=== PATIENT | male | born 1945 | race Caucasian/White ===

== ENCOUNTER 2021-05-30 13:00 | Inpatient (IN) | payer MEDICARE, MEDICAID ==
[~2021-05-30] VITALS: Ht 167.6 cm; Wt 77.3 kg
[~2021-05-30 13:00] MED LIST: AMLO5TAB16 PO; ASPI-1071 PO; CHOL20002 PO; CYAN25004 SL; OMEG10006 PO; PENT400T17 PO; VITAL REDS PO
[2021-06-05] MEDS ORDERED: PYRI100T10 PO (11:13)
[2021-06-06] VITALS (17 sets, daily range): BP systolic 139–186; BP diastolic 56–79
[2021-06-06] MEDS ORDERED: ringers solution, lacted 1,000 ML IV SCH ×2 (05:00→12:40)
[2021-06-06] MEDS ORDERED: cefazolin/dext.iso 2gm/100ml IV ONE (05:30)
[2021-06-06] MEDS ORDERED: famotidine 20mg tablet PO ONE (05:30)
[2021-06-06] MEDS: phenylephrine inj 50 MG in normal saline 250ml IV soln 245 ML IV SCH (05:30)
[2021-06-06] MEDS: nitroPRUSSIDE (NIPRIDE) (200MCG/ML) 100ML Drip IV SCH ×2 (05:30→23:19)
[2021-06-06] MEDS ORDERED: LIDOcaine 1% 30ml preserv. free vial ONE (08:53)
[2021-06-06] MEDS ORDERED: heparin 10,000 units/1 ML INJ ONE (08:53)
[2021-06-06 09:27] LABS: BASOPHILS # (AUTO) 0.1 X10'3 (0-0.2); BASOPHILS % (AUTO) 0.8 % (0-1); EOSINOPHILS # (AUTO) 0.2 X10'3 (0-0.9); EOSINOPHILS % (AUTO) 2.7 % (0-6); LYMPHOCYTES % (AUTO) 26.7 % (21-51); MEAN CORPUSCULAR HEMOGLOBIN 30.2 PG (27.0-31.0); MEAN CORPUSCULAR HGB CONC 32.8 g/dL (33.0-36.5); MONOCYTES # (AUTO) 0.5 X10'3 (0-0.9); MONOCYTES % (AUTO) 6.9 % (2-12); NEUTROPHILS # (AUTO) 4.8 X10'3 (1.8-7.7); NEUTROPHILS % (AUTO) 62.9 % (42-75); PRE OP HEMATOCRIT 37.5 % (42.0-52.0); PRE OP HEMOGLOBIN 12.3 g/dL (14.0-17.9); PRE OP PLATELET COUNT 246 X10'3 (140-440); RED BLOOD COUNT 4.08 X10'6 (4.70-6.10); RED CELL DISTRIBUTION WIDTH 14.9 % (11.5-14.5)
[2021-06-06] MEDS ORDERED: LIDOcaine 1% (10mg/ml) 2ml vial ONE (09:30)
[2021-06-06] MEDS ORDERED: iohexol 350MG/ML 100ml bottle IV ONE (09:31)
[2021-06-06 09:34] LABS: CLARITY,URINE CLEAR (Clear); COLOR,URINE YELLOW (Yellow); GLUCOSE, URINE NEGATIVE (Neg); KETONES,URINE NEGATIVE (Neg); LEUKOCYTE ESTERASE ,URINE NEGATIVE (Neg); NITRITES, URINE NEGATIVE (Neg); OCCULT BLOOD,URINE NEGATIVE (Neg); PH,URINE 5.5 (4.8-8.0); PROTEIN,URINE NEGATIVE (Neg); UROBILINOGEN,URINE 0.2 E.U/dL (0.2-1.0)
[2021-06-06 09:37] LABS: PRE OP PARTIAL THROMB. TIME 34 SECONDS (22-32)
[2021-06-06 09:44] LABS: ALBUMIN 3.5 G/DL (3.4-5.0); ALBUMIN/GLOBULIN RATIO 0.7 (1.1-1.5); ALKALINE PHOSPHATASE 76 IU/L (46-116); BLOOD UREA NITROGEN 23 MG/DL (7-18); BUN/CREATININE RATIO 15.3 (5.4-32.0); CALCIUM 8.3 MG/DL (8.5-10.1); CHLORIDE 107 MMOL/L (99-107); PRE OP ALT 33 U/L (30-65); PRE OP ANION GAP 10 (8-16); PRE OP AST 24 U/L (10-37); PRE OP BILIRUB, TOTAL 0.3 MG/DL (0.0-1.0); PRE OP GLUCOSE 93 MG/DL (70-104); PRE OP POTASSIUM 3.7 MMOL/L (3.4-5.1); PRE OP SODIUM 143 MMOL/L (135-145); TOTAL CARBON DIOXIDE 25.8 MMOL/L (24-32); TOTAL PROTEIN 8.2 G/DL (6.4-8.2); eGFR 46 ML/MIN
[2021-06-06 09:46] LABS: UA COLLECTION TYPE CLN CATCH MIDSTREAM
[2021-06-06] MEDS ORDERED: sevoflurane 250ml liquid IH ONE (11:31)
[2021-06-06] MEDS ORDERED: midazolam 1 mg/ML 2ml injection ONE (11:37)
[2021-06-06] MEDS ORDERED: fentaNYL/PF 50MCG/1 ML 2ML syringe ONE ×2 (11:37→14:01)
[2021-06-06] MEDS ORDERED: propofol inj 20 ML IV ONE (11:40)
[2021-06-06] MEDS ORDERED: rocuronium 10mg/ml inj IV ONE (12:10)
[2021-06-06] MEDS ORDERED: dexamethasone sod phosphate 4mg/ml inj. ONE (12:15)
[2021-06-06] MEDS ORDERED: morphine 2 MG/ML inj. syringe IV PRN (12:40)
[2021-06-06] MEDS ORDERED: ondansetron/PF 4mg/2ml inj IV PRN ×2 (12:40→14:35)
[2021-06-06] MEDS ORDERED: meperidine/PF 25mg/ml syringe IV PRN ×3 (12:40)
[2021-06-06] MEDS ORDERED: proCHLORperazine 10 MG/2 ml inj IV PRN (12:40)
[2021-06-06] MEDS ORDERED: morphine 4 MG/ML inj SYRINge IV PRN (12:40)
[2021-06-06] MEDS ORDERED: glycopyrrolate 0.2mg/ml inj ONE (13:59)
[2021-06-06] MEDS ORDERED: heparin 1,000unit/ml 10ml vial 10 ML ONE (13:59)
[2021-06-06] MEDS ORDERED: neostigmine methylsulfate 1 MG/ML 10ml vial ONE (13:59)
[2021-06-06] MEDS ORDERED: ondansetron/PF 4mg/2ml inj ONE (13:59)
--- NOTE | 2021-06-06 14:21 | NUR ---
Received from OR via BED IN STABLE CONDITION , accompanied by Anesthesiologist and PROCUREMENT ASSISTANT report given by PROCUREMENT ASSISTANT AND Anesthesiolgist. Addendum: 06/06/21 at 1457 by Sylvia Soliman RN Amended: Links added.
[2021-06-06] MEDS ORDERED: HYDROcodone/acetaminophen 10/325mg tab PO PRN (14:35)
[2021-06-06] MEDS ORDERED: HYDROmorphone inj. 0.5 MG/0.5 ML DISP.SYRIN IV PRN (14:35)
--- NOTE | 2021-06-06 15:41 | NUR ---
PATIENT TRANSFERRED TO ICU ROOM 2038 IN STABLE CONDITION AFTER REPORT GIV
--- NOTE | 2021-06-06 16:00 | NUR ---
received from pacu. placed on monitor. denies pain resting comfortably
--- NOTE | 2021-06-06 16:50 | NUR ---
PATIENT TRANSFERRED FROM PACU IN STABLE CONDITION TO ROOM 2038 AFTER REPORT GIVEN. PATIENT TRANSPORTED VIA BED ON MONITOR WITH RNX2 AND GAMING DEPARTMENT HEAD
--- NOTE | 2021-06-06 18:10 | NUR ---
Patient in room ICU 2038. I have received report from Brionna RICHEY and had the opportunity to ask questions and assume patient care.
[2021-06-06] MEDS: potassium CL 20mEq in D5-1/2NS 1,000 ML IV SCH ×2 (18:33→22:35)
[2021-06-06] MEDS: ceFAZolin inj. 1,000 MG in dextrose 5%-water 50ml 50 ML IV SCH (18:33)
[2021-06-07] VITALS (11 sets, daily range): BP systolic 123–158; BP diastolic 46–66
[2021-06-07] MEDS: ceFAZolin inj. 1,000 MG in dextrose 5%-water 50ml 50 ML IV SCH (01:27)
[2021-06-07 02:51] LABS: BASOPHILS # (AUTO) 0.1 X10'3 (0-0.2); BASOPHILS % (AUTO) 1.1 % (0-1); EOSINOPHILS % (AUTO) 0.1 % (0-6); HEMATOCRIT 31.5 % (42.0-52.0); HEMOGLOBIN 10.5 g/dl (14.0-17.9); LYMPHOCYTES # (AUTO) 0.8 X10'3 (1.1-4.8); LYMPHOCYTES % (AUTO) 8.6 % (21-51); MEAN CORPUSCULAR HEMOGLOBIN 30.3 PG (27.0-31.0); MEAN CORPUSCULAR HGB CONC 33.3 g/dL (33.0-36.5); MEAN CORPUSCULAR VOLUME 90.7 FL (78-98); MEAN PLATELET VOLUME 8.2 FL (7.4-10.4); MONOCYTES # (AUTO) 0.1 X10'3 (0-0.9); MONOCYTES % (AUTO) 1.4 % (2-12); NEUTROPHILS # (AUTO) 8.3 X10'3 (1.8-7.7); NEUTROPHILS % (AUTO) 88.8 % (42-75); PLATELET COUNT 195 X10'3 (140-440); RED BLOOD COUNT 3.47 X10'6 (4.70-6.10); RED CELL DISTRIBUTION WIDTH 15.1 % (11.5-14.5); WHITE BLOOD COUNT 9.3 X10'3 (4.5-11.0)
[2021-06-07 03:01] LABS: ALBUMIN 2.5 G/DL (3.4-5.0); ANION GAP 10 (8-16); BLOOD UREA NITROGEN 18 MG/DL (7-18); CALCIUM 7.8 MG/DL (8.5-10.1); CHLORIDE 107 MMOL/L (99-107); CREATININE 1.38 MG/DL (0.60-1.10); GLUCOSE 201 MG/DL (70-104); POTASSIUM 4.6 MMOL/L (3.5-5.1); SODIUM 139 MMOL/L (135-145); TOTAL CARBON DIOXIDE 22.5 MMOL/L (24-32); eGFR 51 ML/MIN
[2021-06-07] MEDS: phenylephrine inj 50 MG in normal saline 250ml IV soln 245 ML IV SCH (03:47)
[2021-06-07] MEDS: potassium CL 20mEq in D5-1/2NS 1,000 ML IV SCH ×2 (04:00→05:26)
--- NOTE | 2021-06-07 06:21 | NUR ---
Problems reprioritized. Patient report given, questions answered & plan of care reviewed with Elisabeth RICHEY.
[2021-06-07] MEDS ORDERED: cholecalciferol (vitamin D3) 1,000 unit (25mcg) tablet PO SCH (09:29)
[2021-06-07] MEDS ORDERED: cyanocobalamin 500mcg tablet PO SCH (09:30)
[2021-06-07] MEDS ORDERED: aspirin 325mg tablet, delayed-release (Ecotrin) PO ONE (09:40)
[2021-06-07] MEDS ORDERED: aspirin 81mg, enteric-coated 1 TAB TABLET.DR PO ONE (10:05)
--- NOTE | 2021-06-07 11:54 | NUR ---
Patient discharged per Dr. Rios's order. ART line, surgical drain, and PIV all removed with bleeding contolled. Addendum: 06/07/21 at 1158 by Elisabeth Rmaos RN Controlled. Patient alert, oriented and in no apparent distress at time of discharge. Patient was able to ambulate on room air 300 ft without any ambulation devices and without any changes in vital signs. Patient discharge instructions were discussed and patient was given time for questions and answers. Patient stated an understanding of these and stated that he would call Dr. Rios's office to schedule a follow-up appointment. Patient stated that Dr. Rios and his office team already discussed the instructions with him so he felt he had a good understanding of what to do. Patient able to eat a little prior to leaving and felt "great to eat something". Patient took all belongings with him including discharge instructions.
[2021-06-08] MEDS ORDERED: aspirin 81mg, enteric-coated 1 TAB TABLET.DR PO SCH (08:00)
[2021-06-08] MEDS ORDERED: [UNRECOGNIZED DRUG - OTHER] PO SCH (08:00)
[2021-06-08] MEDS ORDERED: OMEGA-3/DHA/EPA/FISH OIL 1 EACH CAPSULE.DR PO SCH (08:00)
[2021-06-08] MEDS ORDERED: pyridoxine 50mg tablet PO SCH (08:00)
[2021-06-08] MEDS ORDERED: amLODIPine 5mg tablet PO SCH (08:00)
== END 2021-06-07 11:00 | disposition home or self-care (01) | DRG 39 ==
LOC: PRE-OP 13:00 → PAS IN 06-06 08:38 → EDSTATUS 06-06 13:00 → ICU 2S 06-06 15:35
PROVIDERS: ADMIT Surgery; ATTEND Surgery
PROC: 03CK0ZZ Extirpation of Matter from Right Internal Carotid Artery, Open Approach (ICD-10-PCS; 2021-06-06)
PROC: 03CM0ZZ Extirpation of Matter from Right External Carotid Artery, Open Approach (ICD-10-PCS; 2021-06-06)
PROC: 03UH0KZ Supplement Right Common Carotid Artery with Nonautologous Tissue Substitute, Open Approach (ICD-10-PCS; 2021-06-06)
PROC: 03UK0KZ Supplement Right Internal Carotid Artery with Nonautologous Tissue Substitute, Open Approach (ICD-10-PCS; 2021-06-06)
PROC: 03UM0KZ Supplement Right External Carotid Artery with Nonautologous Tissue Substitute, Open Approach (ICD-10-PCS; 2021-06-06)
PROC: 4A10X4Z Monitoring of Central Nervous Electrical Activity, External Approach (ICD-10-PCS; 2021-06-06)
PROC: B3251ZZ Computerized Tomography (CT Scan) of Bilateral Common Carotid Arteries using Low Osmolar Contrast (ICD-10-PCS; 2021-06-06)
PROC: B32G1ZZ Computerized Tomography (CT Scan) of Bilateral Vertebral Arteries using Low Osmolar Contrast (ICD-10-PCS; 2021-06-06)
PROC: 03CH0ZZ Extirpation of Matter from Right Common Carotid Artery, Open Approach (ICD-10-PCS; principal; 2021-06-06 11:31)
DX: I65.21 Occlusion and stenosis of right carotid artery (principal); Z20.822 Contact with and (suspected) exposure to COVID-19
CPT/HCPCS: 36415; 70498; 71046; 80048; 80053; 81003; 85025; 85610; 85730; 86885; 86900; 86901; 87081; 87635; 88300; 88305; 93005; 93882; 95813; 95816; A4618; A6258; A7000; C1758; C1768; C1887; G0378; J0690; J1100; J1644; J2001; J2175; J2250; J2370; J2405; J2704; J2710; J3010; J3480; J3490; J7040; J7050; J7060; J7120; Q9967

== ENCOUNTER 2022-04-27 08:42 | Observation (INO) | payer MEDICARE, MEDICAID ==
[2022-04-27] VITALS (16 sets, daily range): BP systolic 122–195; BP diastolic 47–87
[~2022-04-27] VITALS: Ht 167.6 cm; Wt 76.3 kg
[~2022-04-27 08:42] MED LIST changes: +PYRI100T10 PO; +iohexol 300mg/ml 100ml inj. ONE
[2022-04-27 09:46] LABS: BASOPHILS # (AUTO) 0.1 X10'3 (0-0.2); BASOPHILS % (AUTO) 0.7 % (0-1); EOSINOPHILS # (AUTO) 0.1 X10'3 (0-0.9); RED BLOOD COUNT 4.17 X10'6 (4.70-6.10)
[2022-04-27 09:48] LABS: EOSINOPHILS % (AUTO) 0.8 % (0-6); HEMATOCRIT 36.1 % (42.0-52.0); HEMOGLOBIN 12.1 g/dl (14.0-17.9); LYMPHOCYTES # (AUTO) 1.2 X10'3 (1.1-4.8); LYMPHOCYTES % (AUTO) 13.8 % (21-51); MEAN CORPUSCULAR HGB CONC 33.4 g/dL (33.0-36.5); MEAN CORPUSCULAR VOLUME 86.7 FL (78-98); MONOCYTES # (AUTO) 0.8 X10'3 (0-0.9); MONOCYTES % (AUTO) 9.7 % (2-12); NEUTROPHILS # (AUTO) 6.3 X10'3 (1.8-7.7); PLATELET COUNT 148 X10'3 (140-440); RED CELL DISTRIBUTION WIDTH 14.4 % (11.5-14.5); WHITE BLOOD COUNT 8.4 X10'3 (4.5-11.0)
[2022-04-27 09:53] LABS: ALBUMIN 2.8 G/DL (3.4-5.0); ANION GAP 10 (8-16); BLOOD UREA NITROGEN 28 MG/DL (7-18); BUN/CREATININE RATIO 17.6 (5.4-32.0); CALCIUM 8.7 MG/DL (8.5-10.1); CHLORIDE 104 MMOL/L (99-107); CREATININE 1.59 MG/DL (0.60-1.10); GLUCOSE 107 MG/DL (70-104); SODIUM 138 MMOL/L (135-145); TOTAL CARBON DIOXIDE 24.5 MMOL/L (24-32); eGFR 43 ML/MIN
[2022-04-27] MEDS: normal saline 1000ml 1,000 ML IV PRN ×2 (10:14→21:07)
[2022-04-27] MEDS ORDERED: diphenhydrAMINE 50 mg/ml inj ONE (10:20)
[2022-04-27] MEDS ORDERED: heparin 1,000 UNITS/NS 500ml 500 ML ONE (10:21)
[2022-04-27] MEDS ORDERED: fentaNYL/PF 50MCG/1 ML 2ML syringe ONE (10:21)
[2022-04-27] MEDS ORDERED: midazolam 1 mg/ML 2ml injection ONE (10:21)
[2022-04-27] MEDS ORDERED: heparin 1,000unit/ml 10ml vial 10 ML ONE (10:45)
[2022-04-27] MEDS ORDERED: hydrALAZINE 20mg/ml inj. IV ONE (11:41)
[2022-04-27] MEDS ORDERED: protamine sulfate 10mg/ml inj. ONE (12:03)
[2022-04-27] MEDS ORDERED: hydrALAZINE 20mg/ml inj. IV PRN (14:45)
--- NOTE | 2022-04-27 15:17 | NUR ---
Called patients Martell rizo, to make him aware that patient will be admitted overnight due to going into surgery tonight.
[2022-04-27] MEDS ORDERED: ondansetron/PF 4mg/2ml inj IV PRN (15:20)
[2022-04-27] MEDS ORDERED: magnesium 2GM in 50ml NS 50 ML IV PRN (15:20)
[2022-04-27] MEDS ORDERED: HYDROcodone/acetaminophen 10/325mg tab PO PRN (15:20)
[2022-04-27] MEDS ORDERED: potassium CL 10mEq/100ml bag 100 ML IV PRN (15:20)
[2022-04-27] MEDS ORDERED: magnesium 4gm in 100ml NS 100 ML IV PRN (15:20)
[2022-04-27] MEDS ORDERED: HYDROcodone/acetaminophen 5mg/325mg tablet PO PRN (15:20)
[2022-04-27] MEDS ORDERED: mag hydrox/Alum hydrox/simeth 30ml oral suspension PO PRN (15:20)
[2022-04-27] MEDS ORDERED: magnesium hydroxide 30ml (MOM) UD suspension PO PRN (15:20)
[2022-04-27] MEDS ORDERED: POTASSIUM BICARB 20meq eff tab 20 MEQ TABLET.EFF PO PRN ×2 (15:20)
[2022-04-27] MEDS ORDERED: acetaminophen 325mg tablet PO PRN ×2 (15:20)
[2022-04-27] MEDS ORDERED: nicotine 7mg patch - 24hr TD SCH ×2 (15:40→17:08)
--- NOTE | 2022-04-27 17:35 | NUR ---
Patient in room PCU 3016B. I have received report from ROSSI BARTON FROM [facility] and had the opportunity to ask questions and assume patient care.
--- NOTE | 2022-04-27 17:35 | NUR ---
Gave report to Nela RICHEY on tele. Transporting to room 3016B at this time.
--- NOTE | 2022-04-27 17:45 | NUR ---
Transfer to Tele room 3016 B complete. Tele box applied. CSSU RN and APPLICATIONS PROGRAMMER checked groin site together. Dressing clean, dry and intact. No hematoma noted. Pulses present via doppler. Patient is to lay flat until 6 pm. Nela answering service telephone operator aware. Plan for overnight observation then d/c home tomorrow as long as no bleeding noted requiring further intervention.
--- NOTE | 2022-04-27 18:52 | NUR ---
Problems reprioritized. Patient report given, questions answered & plan of care reviewed with ROSSI HARRIS.
[2022-04-27] MEDS: docusate sod 100mg capsule PO SCH (20:00)
[2022-04-27] MEDS: K and/or MAG REPLACEMENT MC SCH (20:00)
[2022-04-28 02:30] VITALS: BP 157/78
[2022-04-28 06:00] VITALS: BP 167/68
--- NOTE | 2022-04-28 06:22 | NUR ---
Problems reprioritized. Patient report given, questions answered & plan of care reviewed with Nayla RICHEY. Addendum: 04/28/22 at 0622 by Aiyana Sahni RN Amended: Links added.
--- NOTE | 2022-04-28 06:39 | NUR ---
Patient in room PCU 3016. I have received report from Aiyana RICHEY and had the opportunity to ask questions and assume patient care.
[2022-04-28 06:48] LABS: BASOPHILS % (AUTO) 0.4 % (0-1); EOSINOPHILS % (AUTO) 0.6 % (0-6); HEMOGLOBIN 10.2 g/dl (14.0-17.9); LYMPHOCYTES % (AUTO) 14.5 % (21-51); MEAN CORPUSCULAR HEMOGLOBIN 29.3 PG (27.0-31.0); MEAN CORPUSCULAR HGB CONC 34.1 g/dL (33.0-36.5); MEAN PLATELET VOLUME 7.9 FL (7.4-10.4); MONOCYTES # (AUTO) 0.7 X10'3 (0-0.9); NEUTROPHILS # (AUTO) 5.2 X10'3 (1.8-7.7); NEUTROPHILS % (AUTO) 74.5 % (42-75); PLATELET COUNT 225 X10'3 (140-440); RED BLOOD COUNT 3.48 X10'6 (4.70-6.10); RED CELL DISTRIBUTION WIDTH 14.6 % (11.5-14.5)
[2022-04-28 07:08] LABS: ALANINE AMINOTRANSFERASE 21 U/L (12-78); ALBUMIN 2.3 G/DL (3.4-5.0); ALBUMIN/GLOBULIN RATIO 0.5 (1.1-1.5); ALKALINE PHOSPHATASE 59 IU/L (46-116); ANION GAP 8 (8-16); ASPARTATE AMINO TRANSFERASE 22 U/L (10-37); BILIRUBIN,TOTAL 0.5 MG/DL (0.1-1.0); BLOOD UREA NITROGEN 22 MG/DL (7-18); BUN/CREATININE RATIO 16.7 (5.4-32.0); CALCIUM 8.2 MG/DL (8.5-10.1); CHLORIDE 107 MMOL/L (99-107); CREATININE 1.32 MG/DL (0.60-1.10); GLUCOSE 95 MG/DL (70-104); MAGNESIUM 1.9 MG/DL (1.5-2.4); POTASSIUM 4.1 MMOL/L (3.5-5.1); SODIUM 136 MMOL/L (135-145); TOTAL CARBON DIOXIDE 21.1 MMOL/L (24-32); TOTAL PROTEIN 6.8 G/DL (6.4-8.2); eGFR 53 ML/MIN
[2022-04-28] MEDS: K and/or MAG REPLACEMENT MC SCH (08:00)
[2022-04-28] MEDS ORDERED: bisacodyl 10mg suppository rectal RC STA (09:28)
[2022-04-28] MEDS ORDERED: magnesium hydroxide 30ml (MOM) UD suspension PO ONE (09:30)
[2022-04-28] MEDS ORDERED: NICO-630 TD (11:57)
[2022-04-28] MEDS ORDERED: AMLO5TAB16 PO (11:57)
[2022-04-28] MEDS ORDERED: CLOP75TA15 PO (11:57)
[2022-04-28] MEDS: docusate sod 100mg capsule PO SCH (12:38)
== END 2022-04-28 13:10 | disposition home or self-care (01) ==
LOC: SSTAY O 08:42 → PCU 3S 15:26
PROVIDERS: ADMIT Family Medicine; ATTEND Family Medicine
DX: I73.9 Peripheral vascular disease, unspecified (principal); I70.8 Atherosclerosis of other arteries; I74.5 Embolism and thrombosis of iliac artery; I65.21 Occlusion and stenosis of right carotid artery; I12.9 Hypertensive chronic kidney disease with stage 1 through stage 4 chronic kidney disease, or unspecified chronic kidney disease; N18.30 Chronic kidney disease, stage 3 unspecified; K59.00 Constipation, unspecified; F17.210 Nicotine dependence, cigarettes, uncomplicated; Z79.02 Long term (current) use of antithrombotics/antiplatelets; Z79.82 Long term (current) use of aspirin; Z79.899 Other long term (current) drug therapy
CPT/HCPCS: 36415; 37220; 74018; 80048; 80053; 83735; 85025; 93922; 96374; C1725; C1760; C1769; C1894; C2623; G0378; J0360; J1200; J1644; J2250; J2720; J3010; J7030; Q9967; 99152; 99153; A4620; A6213; A6258; A6449; C1726